=== PATIENT | male | born 1970 | race Caucasian/White ===

== ENCOUNTER 2021-09-21 21:42 | Emergency (ER) | payer OTHER ==
[~2021-09-21] VITALS: Ht 190.5 cm; Wt 102.1 kg
[2021-09-21] MEDS ORDERED: B&O 60MG R/S 60 MG SUPP PR ONE (22:45)
== END 2021-09-21 23:54 | disposition home or self-care (01) ==
LOC: ER 21:48
DX: Z46.6 Encounter for fitting and adjustment of urinary device (principal); R33.9 Retention of urine, unspecified; E11.9 Type 2 diabetes mellitus without complications; E03.9 Hypothyroidism, unspecified
CPT/HCPCS: 99282